=== PATIENT | female | born 1995 | race African-American/Black ===

== ENCOUNTER 2021-01-14 18:09 | Emergency (ER) | payer SELFPAY ==
[~2021-01-14] VITALS: Ht 165.1 cm; Wt 82.0 kg
[2021-01-14 18:22] VITALS: BP 146/91
[2021-01-14] MEDS ORDERED: FLUORESCEIN SODIUM 1MG/STRIP RIGHTEYE ONE (19:45)
[2021-01-14] MEDS ORDERED: TETRACAINE 0.5% OPHTH DROPS 4ML RIGHTEYE ONE (19:45)
[2021-01-14] MEDS ORDERED: HYDROCODONE/ACETAMINOPHEN 5/325MG TABLET PO ONE (21:00)
[2021-01-14] MEDS ORDERED: HOMA5DRO8 LEFTEYE (22:25)
[2021-01-14] MEDS ORDERED: OFLO5DRO3 LEFTEYE (22:25)
[2021-01-14] MEDS ORDERED: HYDR-4001 MT (22:25)
== END 2021-01-14 22:49 | disposition home or self-care (01) ==
LOC: ER 18:09
DX: H10.9 Unspecified conjunctivitis (principal); H20.9 Unspecified iridocyclitis
CPT/HCPCS: 81025; 99284